=== PATIENT | male | born 1965 | race African-American/Black ===

== ENCOUNTER 2020-04-08 17:10 | Emergency (ER) | payer OTHER ==
[~2020-04-08] VITALS: Ht 177.8 cm; Wt 82.0 kg
[2020-04-08] MEDS ORDERED: IBUPROFEN 600MG TABLET PO ONE (18:15)
[2020-04-08] MEDS ORDERED: HYDROCODONE/ACETAMINOPHEN 5/325MG TABLET PO ONE (18:45)
[2020-04-08 19:15] VITALS: BP 117/77
== END 2020-04-08 19:52 | disposition home or self-care (01) ==
LOC: ER 17:10
DX: S43.492A Other sprain of left shoulder joint, initial encounter (principal); E78.00 Pure hypercholesterolemia, unspecified; W01.0XXA Fall on same level from slipping, tripping and stumbling without subsequent striking against object, initial encounter; Y93.89 Activity, other specified; Y92.018 Other place in single-family (private) house as the place of occurrence of the external cause
CPT/HCPCS: 73030; 99283